=== PATIENT | female | born 1965 | race Caucasian/White ===

== ENCOUNTER 2017-09-24 08:13 | Day surgery (SDC) | payer OTHER ==
[~2017-09-24] VITALS: Ht 174 cm; Wt 61.4 kg
[~2017-09-24 08:13] MED LIST: CeFAZolin 1 GM/DEXTROSE 50 ML IV ONE; LORazepam 2 MG/ML VIAL IVP PRN; SODIUM CHLORIDE 0.9% 1,000 ML IV ONE; THYR30 PO
[2017-09-24 09:25] LABS: BASOPHILS % (AUTO) 0.4 % (0.0-2.0); EOSINOPHILS % (AUTO) 1.4 % (1.0-6.0); HEMATOCRIT 42.7 % (36-46); HEMOGLOBIN 14.8 g/dL (12.0-16.0); LYMPHOCYTES % (AUTO) 20.4 % (22.0-44.0); MEAN CORPUSCULAR HEMOGLOBIN 32.4 pg (26.0-34.0); MEAN CORPUSCULAR HGB CONC 34.7 G/dL (31.0-37.0); MEAN CORPUSCULAR VOLUME 93 fL (80-100); MONOCYTES # (AUTO) 0.7 K/uL (0.1-1.0); MONOCYTES % (AUTO) 14.5 % (2.0-9.0); NEUTROPHILS # (AUTO) 3.2 K/uL (1.8-7.7); NEUTROPHILS % (AUTO) 63.3 % (40.0-70.0); PLATELET COUNT (AUTO) 215 K/uL (150-450); RED BLOOD CELL COUNT(AUTO) 4.57 MIL/uL (4.00-5.20); RED CELL DISTRIBUTION WIDTH 12.9 % (11.5-14.5); WHITE BLOOD COUNT (AUTO) 5.1 K/uL (4.5-11.0)
[2017-09-24 09:26] LABS: ALANINE AMINOTRANSFERASE 25 U/L (12-78); ANION GAP 8 mmol/L (8-16); ASPARTATE AMINOTRANSFERASE 27 U/L (15-37); BILIRUBIN,TOTAL 0.4 mg/dL (0.1-1.0); CALCIUM, TOTAL 8.9 mg/dL (8.8-10.5); CARBON DIOXIDE 30 mmol/L (22-29); CHLORIDE 104 mmol/L (98-107); CREATININE 0.66 mg/dL (0.60-1.30); GLOMERULAR FILTR. RATE CALC > 60 mL/min (>60); POTASSIUM 4.1 mmol/L (3.5-5.1); SODIUM SERUM 142 mmol/L (136-145); TOTAL PROTEIN, SERUM 7.1 g/dL (6.4-8.2); UREA NITROGEN, BLOOD 11 mg/dL (7-18)
[2017-09-24] MEDS ORDERED: FentaNYL CITRATE-PF 100 MCG/2 ML VIAL ONE ×2 (10:12→10:54)
[2017-09-24] MEDS ORDERED: MIDAZOLAM HCL 2 MG/2 ML VIAL ONE ×2 (10:12→10:55)
[2017-09-24] MEDS ORDERED: SODIUM CHLORIDE 0.9% 1,000 ML IV SCH (10:25)
[2017-09-24] MEDS ORDERED: HYDROmorphone HCL 2 MG TABLET PO ONE (10:30)
[2017-09-24] MEDS ORDERED: OxyCODONE HCL/ACETAMINOPHEN 5-325 MG TABLET PO PRN ×2 (10:30)
[2017-09-24] MEDS ORDERED: HYDROmorphone 2 MG/ML SYRINGE IVP PRN (10:30)
[2017-09-24] MEDS ORDERED: FentaNYL CITRATE-PF 100 MCG/2 ML VIAL IVP ONE (11:25)
[2017-09-24] MEDS ORDERED: MIDAZOLAM HCL 2 MG/2 ML VIAL IVP ONE (11:25)
[2017-09-24] MEDS ORDERED: HYDROmorphone HCL 2 MG TABLET ONE (12:20)
[2017-09-24] MEDS ORDERED: OxyCODONE HCL/ACETAMINOPHEN 5-325 MG TABLET ONE (12:58)
== END 2017-09-24 13:45 | disposition home or self-care (01) ==
LOC: SURGERY 08:13 → EDSTATUS 10:00 → SURGERY 13:45
PROVIDERS: ATTEND Radiology Diagnostic Radiology
DX: N63.10 Unspecified lump in the right breast, unspecified quadrant (principal); E03.9 Hypothyroidism, unspecified; Z88.2 Allergy status to sulfonamides; Z87.891 Personal history of nicotine dependence; Z90.89 Acquired absence of other organs; Z91.018 Allergy to other foods; Z79.890 Hormone replacement therapy
CPT/HCPCS: 19105; 36415; 80053; 85025; 99152; 99153; C2618; J0690; J2250; J3010; J7030